=== PATIENT | female | born 1945 | race Caucasian/White ===

== ENCOUNTER 2016-05-23 16:00 | Inpatient (IN) | payer OTHER ==
[2016-05-23] MEDS ORDERED: NORCO-5 PO PRN (16:47)
[2016-05-23] MEDS ORDERED: ZOFRAN IV PRN (16:47)
[2016-05-23] MEDS ORDERED: LUNESTA PO PRN (16:47)
[2016-05-23] MEDS ORDERED: TYLENOL PO PRN (16:47)
[2016-05-23] MEDS ORDERED: AMBIEN PO PRN (17:24)
[2016-05-23] MEDS: NS 1,000 ML IV SCH (17:51)
--- NOTE | 2016-05-23 18:09 | HISTORY AND PHYSICAL ---
HISTORY OF PRESENT ILLNESS: Mrs. Elle Sales is a 70-year-old lady who is well known to me. 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 Over the past 6 weeks she has been running daily fevers as high as 100 degrees to 100.5 degrees. She has had persistent nausea and dry heaves in association with abdominal pain. Dr. Haney recently performed an EGD which demonstrated gastritis. She has had a previous cholecystectomy. She has not had any unexplained bone pain, night sweats, or significant weight loss. She has lost approximately 10 pounds in that periods of time. She had a CT of the chest and abdomen and pelvis which demonstrated stable mesenteric and periaortic adenopathy. PAST MEDICAL HISTORY: As above. PAST SURGICAL HISTORY: Right radical mastectomy, cholecystectomy, ventral hernia repair, vaginal hysterectomy, and parathyroidectomy ALLERGIES: Codeine, penicillin, sulfa. MEDICATIONS: Allopurinol 300 mg daily, Cytomel 25 mcg daily, Effexor XR 150 mg daily, Elmiron 100 mg t.i.d., Lunesta 3 mg at bedtime, oxybutynin 5 mg daily, Nexium 40 mg daily, Verapamil 360 mg daily, gabapentin 100 mg b.i.d., amitriptyline 50 mg at bedtime. FAMILY HISTORY: Father at age 92 with diabetes complications. Mother at age 82. She had hypertension. Brother of complications of colon cancer. SOCIAL HISTORY: She is a former smoker. She does consume alcoholic beverages. REVIEW OF SYSTEMS: Constitutional: She is feeling tired and washed out. HEENT: She wears glasses. CV: No chest pain, palpitations, or anginal equivalent. Pulmonary: No shortness of breath, PND, orthopnea. GI: No reflux, dysphagia, melena, hematochezia, change in bowel habits, or rectal bleeding. Endocrine: No polyuria. No polydipsia. No cold or heat intolerance. Skin: No easy bruisability. : No leakage of urine with coughing or laughing. Neurologic: No migraines or seizures. PHYSICAL EXAMINATION: VITAL SIGNS: Temperature 99.9 degrees, pulse 74, respirations 20, BP 130/64. HEENT: Fundi with arteriolar wall thickening. Pupils equal, round, reactive to light. Extraocular eye movements intact. TMs without bullae. NECK: Supple. No masses, JVD, or bruits. CV: Regular rate and rhythm. LUNGS: Clear. ABDOMEN: Soft, nontender, with active bowel sounds. No hepatosplenomegaly. No abdominal bruits. EXTREMITIES: Without edema. SKIN: No palpable purpura. NEUROLOGIC: Nonfocal. ASSESSMENT AND PLAN: 1. FUO. She has had persistent low-grade fevers for nearly 6 weeks. She does have a history of non-Hodgkin's lymphoma and previous scans have demonstrated no activation of the tumor. She has not had to undergo any treatments to this point in time. I am going to check a CT scan of the thorax and a CT scan of the abdomen and pelvis with contrast in the morning. We will also screen for connective tissue disorders and I will check a sedimentation rate, rheumatoid factor, and RONAK. She does not have a new murmur. We will check a urinalysis, urine culture, chest x-ray, as well as blood cultures x2. 2. Hypertension. Her blood pressure is stable. We will continue verapamil SR 360 mg daily. 3. Gastroesophageal reflux disease complicated by Baker's esophagus. We will continue anti- reflux precautions and Nexium 40 mg daily. Given the patient's comorbid conditions and clinical course, I believe that hospitalization is absolutely necessary. I anticipate that she will be in the hospital for longer than 2 midnights and I will therefore place her in inpatient status.
[2016-05-23 18:46] LABS: MANUAL DIFF NEEDED? NO
[2016-05-23 18:52] LABS: BASO% 0.5 % (0.0-0.8); EOS# 0.08 X1000 (0.0-0.7); EOS% 1.3 % (0.0-10.0); HEMATOCRIT 34.6 % (37.0-47.0); HEMOGLOBIN 11.1 g/dL (12.0-16.0); LYMPH# 1.83 X1000 (1.2-3.4); LYMPH% 29.5 % (20.5-51.1); MCH 27.8 PG (27-31); MCHC 32.1 g/dL (33-37); MCV 86.5 FL (81-99); MONO# 0.51 X1000 (0.11-0.59); MONO% 8.2 % (1.7-9.3); MPV 11.4 FL (7.4-10.4); NEUT% 60.5 % (42.2-75.2); PLT 244 X1000 (130-400)
[2016-05-23 19:09] LABS: AGAP 13; ALBUMIN 3.8 g/dL (3.5-5.0); ALKALINE PHOSPHATASE 128 U/L (32-104); AMYLASE 40 U/L (20-200); BUN 11 mg/dL (8-22); CHLORIDE 100 mmol/L (98-107); COSMO 275; GOT 66 U/L (10-30); GPT 67 U/L (10-36); LIPASE 6 U/L (13-60); POTASSIUM 3.9 mmol/L (3.5-5.1); RA TEST < 10 IU/mL (0-14); SODIUM 138 mmol/L (136-145); TCO2 25 mmol/L (25-35); TOTAL BILIRUBIN 0.31 mg/dL (0.20-1.00); TOTAL PROTEIN 6.3 g/dL (6.3-8.3)
[2016-05-23 19:17] LABS: FREE T4 0.29 ng/dL (0.93-1.70)
[2016-05-23 19:53] LABS: URINE CULTURE NEEDED? NO; URINE MICRO REVIEW NEEDED? NO; URINE SOURCE CLEAN CATCH
[2016-05-23 19:55] LABS: BILIRUBIN URINE NEGATIVE (NEGATIVE); BLOOD URINE NEGATIVE (NEGATIVE); COLOR YELLOW; GLUCOSE URINE NEGATIVE (NEGATIVE); LEUKOCYTES URINE NEGATIVE (NEGATIVE); NITRITE URINE NEGATIVE (NEGATIVE); PROTEIN URINE NEGATIVE (NEGATIVE); SP GRAVITY URINE 1.009; TURBIDITY URINE CLEAR (CLEAR); UROBILINOGEN URINE NORMAL (NORMAL)
[2016-05-23 19:55] LABS: SED RATE 40 mm/hr (0-20)
[2016-05-23 19:57] LABS: UR EPITHELIAL CELLS <10 /HPF (<10); URINE BACTERIA NEGATIVE /HPF; URINE RBC <10 /HPF (<10); URINE WBC <10 /HPF (<10)
[2016-05-23] MEDS ORDERED: PNEUMOVAX 23 IM ONE (20:15)
[2016-05-23] MEDS: LOVENOX SUBQ SCH (21:12)
[2016-05-23] MEDS: GRALISE PO SCH (21:12)
[2016-05-23] MEDS: ELAVIL PO SCH (21:13)
--- NOTE | 2016-05-24 07:28 | Diag Imaging Result Document ---
PROCEDURE NAME: CHEST-2 VIEWS - 05/23/2016 FRONTAL AND LATERAL CHEST, TWO VIEWS: COMPARISON: 03/05/2016. FINDINGS: The lungs are well expanded. The heart is not enlarged. The vessels are not distended. There are no infiltrates. No pleural effusions. Mild scoliosis. IMPRESSION: No pneumonia.
--- NOTE | 2016-05-24 08:54 | PROGRESS NOTE ---
DATE: 05/24/2016 SUBJECTIVE: Ms. Sales has had persistent low-grade fevers for 6 weeks. The etiology of her low grade fever is unclear. She has had intermittent nausea, vomiting and abdominal pain. Recent EGD demonstrated mild gastritis. She has not had any unexplained cough or pleuritic chest pain. Her chest x-ray was clear. She has not had any increasing joint pain or bone pain. Her rheumatoid factor was normal. She does have a history of non-Hodgkin's lymphoma but has not required active treatment to this point in time. Blood pressure remains well controlled. Systolic blood pressures range from 119-122, whereas her diastolic blood pressures range from 50- 54. She is breathing comfortably and is maintaining O2 saturations of 98% on room air. OBJECTIVE: Vital signs: Temperature 98.3 degrees, pulse 73, respirations 16, BP 119/54. CV: Regular rate and rhythm. Lungs: Clear. Abdomen: Mildly tender. No rebound or guarding. She has good bowel sounds. LABORATORY DATA: A CBC demonstrated a white count 6.21, hemoglobin 1.1, hematocrit 34.6 and a platelet count of 244,000. There was no left shift. Electrolytes demonstrated the following: Sodium 138, potassium 3.9, CO2 25, BUN 11, creatinine 0.6. She did have elevated liver enzymes with an AST of 66 and ALT of 67. Her urinalysis was clear. ASSESSMENT AND PLAN: Fever of unknown origin. She continues with persistent low-grade fevers over the past 6 weeks. The etiology is unclear so far. We cannot find any evidence of infection. Her chest x-ray is clear. Urinalysis is clear. We are awaiting cultures. She does not seem to have any evidence of connective tissue disorder such as rheumatoid arthritis. Given her history of non-Hodgkin's lymphoma, I am concerned that there has been an activation of the underlying tumor. She does have an elevated sedimentation rate. I am going to proceed with a CT scan of the abdomen and pelvis with contrast as well as a CT scan of the thorax today.
[2016-05-24] MEDS: LEVAQUIN 750 MG/D5W 150 ML IV SCH (09:49)
[2016-05-24] MEDS: NS 1,000 ML IV SCH ×2 (09:49→18:20)
--- NOTE | 2016-05-24 09:52 | Diag Imaging Result Document ---
PROCEDURE NAME: THORAX/ABDOMEN/PELVIS - 05/24/2016 CT CHEST, ABDOMEN AND PELVIS WITH INTRAVENOUS CONTRAST. DOSE REDUCTION PROTOCOL : CT CHEST: COMPARISON: No comparison films. FINDINGS: No pleural effusions. No cardiomegaly. No thoracic aortic aneurysm or dissection. There are calcified mediastinal and left hilar lymph nodes and there is a left lower lobe calcified granuloma. There are several small noncalcified mediastinal lymph nodes. Faint area of increased density in the mid right lung. No consolidation. I do not identify a lung mass. No enlarged axillary lymph nodes. IMPRESSION: 1. There is evidence of a prior granulomatous infection. 2. Tiny faint infiltrates or scarring in the mid right lung. 3. Small hiatal hernia. ABDOMEN AND PELVIS WITH INTRAVENOUS CONTRAST: COMPARISON: 11/27/2015. FINDINGS: The gallbladder has been removed. There is marked fatty infiltration of the liver. Normal spleen. There is fatty replacement of the pancreas. Normal adrenal glands. Normal enhancement of the kidneys. There are mildly enlarged periaortic and pericaval lymph nodes. These are slightly larger than on the prior exam. Mildly prominent mesenteric lymph nodes are stable to slightly larger than they were on the prior study. There is a small anterior abdominal wall hernia adjacent to the umbilicus. There is fat within this, but no bowel loops. The bowel loops are not dilated. Normal appendix. No abscess. There are multiple sutures in the pelvis. The uterus has been removed. No pelvic mass. There is a fat filled left inguinal hernia. No enlarged pelvic lymph nodes. IMPRESSION: 1. Mildly enlarged mesenteric and periaortic lymph nodes which are slightly larger than on the prior exam. There is haziness around these thus there may be adenitis. 2. Cholecystectomy. 3. Prominent fatty infiltration of the liver. 4. Hysterectomy. [facility]
[2016-05-24] MEDS: ZYLOPRIM PO SCH (09:53)
[2016-05-24] MEDS: NEXIUM PO SCH (09:53)
[2016-05-24] MEDS: ISOPTIN SR PO SCH (09:54)
[2016-05-24] MEDS: PAXIL PO SCH (09:55)
[2016-05-24] MEDS: CYTOMEL PO SCH ×2 (09:56)
[2016-05-24] MEDS: ELMIRON PO SCH ×3 (09:56→16:57)
[2016-05-24] MEDS: DITROPAN PO SCH (09:57)
[2016-05-24] MEDS: GRALISE PO SCH ×3 (09:59→17:00)
[2016-05-24] MEDS: FLAGYL 500 MG/NS 100 ML IV SCH ×3 (11:28→22:05)
--- NOTE | 2016-05-24 12:06 | PROGRESS NOTE ---
DATE: 05/24/2016 SUBJECTIVE: Mrs. Sales has a history of non-Hodgkin's lymphoma. She has had persistent low- grade fever at night for the past 6 weeks. Her temperature has ranged from 100-100.5. She has not had any localizing symptoms of infection. Her initial chest x-ray demonstrated a well- expanded lung sung. No infiltrates or pleural effusions were noted. Urine culture is requiring more incubation. Her RONAK and rheumatoid factor were normal. Sedimentation rate was elevated. She had a CT scan of the abdomen and pelvis and chest this morning. It showed that she had mildly enlarged mesenteric and periaortic lymph nodes which were slightly larger than the previous exam. There was haziness around these which may represent adenitis. She is had no nausea or vomiting overnight. OBJECTIVE: Vital Signs: Temperature 98.1 degrees, pulse 69, respirations 18. Blood pressure 127/70. Cardiovascular: Regular rate and rhythm. Respiratory: Lungs clear. Abdomen: Mild diffuse tenderness. No rebound or guarding. She has good bowel sounds. ASSESSMENT: Fever of unknown origin. She has had persistent fevers for 6 weeks. She does not appear to have a connective tissue disorder such as rheumatoid arthritis or lupus. PLAN: We will continue broad-spectrum antibiotics including Levaquin and Flagyl pending the urine cultures and blood cultures. She appeared to have some adenitis in the abdomen and I added Flagyl. Unfortunately, I suspect that her fever is due to an activation of the non-Hodgkin's lymphoma. She has lymph nodes which are larger. I have spoken to Dr. Rabago who will see her in the office next week to discuss treatment options.
[2016-05-24] MEDS: LOVENOX SUBQ SCH (16:57)
[2016-05-24] MEDS: ELAVIL PO SCH (20:12)
[2016-05-25] MEDS: NS 1,000 ML IV SCH (00:50)
[2016-05-25] MEDS: FLAGYL 500 MG/NS 100 ML IV SCH ×2 (04:32→11:03)
[2016-05-25] MEDS: ELMIRON PO SCH ×2 (06:34→11:07)
[2016-05-25 07:50] VITALS: BP 122/68
[2016-05-25] MEDS: LEVAQUIN 750 MG/D5W 150 ML IV SCH (09:33)
[2016-05-25] MEDS: DITROPAN PO SCH (09:34)
[2016-05-25] MEDS: CYTOMEL PO SCH ×2 (09:35)
[2016-05-25] MEDS: ISOPTIN SR PO SCH (09:36)
[2016-05-25] MEDS: NEXIUM PO SCH (09:36)
[2016-05-25] MEDS: ZYLOPRIM PO SCH (09:36)
[2016-05-25] MEDS: GRALISE PO SCH (09:37)
[2016-05-25] MEDS: PAXIL PO SCH (09:39)
[2016-05-25] MEDS ORDERED: FLAGYL PO SCH (21:00)
--- NOTE | 2016-05-26 06:17 | DISCHARGE SUMMARY ---
ADMISSION DATE: 05/23/2016 DISCHARGE DATE: 05/25/2016 DISCHARGE DIAGNOSES: 1. Fever of unknown origin. 2. Non-Hodgkin's lymphoma recurrence. 3. Malaise. 4. Fatigue. CONSULTATIONS: Dr. Michael Rabago. OPERATIVE PROCEDURES: None. HOSPITAL COURSE: This 70-year-old, white female with a history of indolent non-Hodgkin's lymphoma diagnosed approximately 2 years ago was admitted due to 6 weeks of intermittent low-grade fevers and night sweats. She did have a slight bit of weight loss, had general malaise, ease of fatigability as well. The patient was brought to the hospital and pancultured. At 48 hours, her blood cultures were negative and her urine culture was negative as well. Almost immediately upon admission and starting of antibiotics, she improved in regard to her malaise, fatigability, and her fever did not recur during hospitalization. Dr. Olsen discussed her CT scan results. I again discussed them on the day of discharge and she understood that there may be some adenitis in her abdomen. Dr. Rabago was consulted and wanted to start her on some chemotherapy. Clearly, her symptoms were suggestive of B-cell type symptoms and it is likely that he may proceed with a PET scan and/or chemotherapy in the near future. It was explained that the patient would need to complete the antibiotics by mouth at home. She was comfortable with this. She has taken Levaquin and Flagyl before, and has tolerated it well. The patient is discharged home in good condition with Levaquin and Flagyl by mouth for 6 days. She has a followup scheduled with Dr. Rabago next at his office to arrange for future treatment plans. She is aware that she can call at any time over the weekend or next week if there are any difficulties.
[2016-05-26] MEDS ORDERED: LEVAQUIN PO SCH (09:00)
== END 2016-05-25 12:35 | disposition home or self-care (01) | DRG 842 ==
LOC: DIRADM 16:00 → 3N 16:31
PROVIDERS: ADMIT Internal Medicine; ATTEND Internal Medicine
DX: C85.90 Non-Hodgkin lymphoma, unspecified, unspecified site (principal); R50.9 Fever, unspecified; I10 Essential (primary) hypertension; K21.9 Gastro-esophageal reflux disease without esophagitis; K22.70 Barrett's esophagus without dysplasia; Z85.3 Personal history of malignant neoplasm of breast; E78.5 Hyperlipidemia, unspecified; F32.9 Major depressive disorder, single episode, unspecified; K29.70 Gastritis, unspecified, without bleeding
CPT/HCPCS: 71020; 71260; 74177; 80053; 81001; 82150; 83690; 84439; 84443; 85025; 85651; 86038; 86431; 87040; 87088; J1650; J7030; Q9967; S0030